=== PATIENT | female | born 1955 | race Caucasian/White ===

== ENCOUNTER → 2016-08-14 10:16 | Outpatient (CLI) | payer OTHER | END | disposition home or self-care (01) | LOC: D.MRI 10:16 | DX: M75.42 Impingement syndrome of left shoulder (principal) ==

== ENCOUNTER 2016-09-20 05:55 | Day surgery (SDC) | payer OTHER ==
[2016-09-19 11:57] LABS: HEMATOCRIT 43.7 % (36.0-48.0); MCH 30.7 pg (26.0-34.0); MCHC 34.3 g/dL (31.0-37.0); MCV 89.5 fL (80.0-100.0); MEAN PLATELET VOLUME 10.7 fL (7.4-10.4); RBC 4.88 10x6/uL (4.00-5.40); RDW 12.9 % (11.5-14.5); WBC 5.6 10x3/uL (4.8-10.8)
[~2016-09-20] VITALS: Ht 160 cm; Wt 81.6 kg
[2016-09-20] MEDS ORDERED: LEVOTHYROXINE125 MCG PO (08:31)
[2016-09-20 08:32] VITALS: BP 149/81; Ht 160 cm; Wt 81.6 kg
[2016-09-20] MEDS ORDERED: HYDROCODONE-APA1 TAB PO (12:29)
--- NOTE | 2016-09-20 19:37 | NUR ---
1345 IV DC WITH CATHER TIP INTACT
--- NOTE | 2016-09-24 09:22 | OP ---
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 PROCEDURES: 1. Arthroscopic biceps tenotomy. 2. Arthroscopic distal clavicle excision. 3. Arthroscopic subacromial decompression, acromioplasty and bursectomy. SURGEON: Cammy Muir MD ANESTHESIA: General. INTRAOPERATIVE COMPLICATIONS: None. SUMMARY OF PATHOLOGIC FINDINGS: The patient had approximately 50% of the superior aspect of the rotator cuff with attritional tearing; however, no point was full thickness and the articular aspect was in good overall condition. No rotator cuff repair was needed. The patient did, however, have substantial amounts of subacromial bursitis and a profound type 3 acromion with thickening of the coracoacromial ligament, as well as acromioclavicular arthritis and lastly, the patient had very severe case of biceps tendinitis. OPERATIVE SUMMARY IN DETAIL: After obtaining the appropriate preoperative orthopedic surgery consent as well as anesthetic consultation, evaluation and clearance, the patient was brought to the operating room and placed on the operating table in supine position. After general laryngeal mask was administered, tourniquet was placed in right lateral decubitus position. All pressure points were well padded to include down leg peroneal pad, as well as axillary roll. The patient was held firmly to the operating table using the vacuum pack suction system. Left upper extremity and shoulder were then prepped and draped in routine sterile fashion. The arm was held in the Arthrex traction boom at 30 degrees of forward flexion, 30 degrees of abduction with 10 pounds of traction laterally. Arthroscopy was established in the glenohumeral joint from posterior portal. Anterior portal was established in the anterior safe interval. Diagnostic arthroscopy showed the above-mentioned findings. The [place] tissue ablation system was utilized to perform a biceps tenotomy. Intraoperative photos were taken of this severe biceps tendinitis prior. Having completed this, attention was turned to the subacromial space. While on subacromial space, the patient was found to have an excoriation of the undersurface of the acromion, as well as the AC ligament. [place] tissue ablation system was utilized in conjunction with resector to completely denude the undersurface of the acromion and release the coracoacromial ligament. A 5-0 barrel rosio was then utilized to perform acromioplasty at the level of acromioclavicular joint and through a separate anterior arthroscopic portal, 1 cm of distal clavicle was excised, as well as inferior osteophytes at the AC joint. At this point, a large resector was utilized to debride the substantial amounts of bursa. The rotator cuff was then evaluated and found to have a OPERATIVE REPORT [id number] LYDIA DIAZ superficial attritional type of tearing; however, no full thickness tear was seen at any point. At this point, arthroscopy portals were closed in routine interrupted fashion. Sterile dressings were applied. The patient was awakened, LMA was removed. She was taken to recovery room in stable condition. All final needle and sponge counts were correct. TRANSINT:[id number] Voice Confirmation ID: [id number] DOCUMENT ID: [id number] WOOD SPRAGUE, CAMMY MALLORY at 0922 CC: [id number] DICTATION DATE: 09/20/16 1233 VINYL TOP INSTALLER: 09/21/16 0007 [facility] 09/20/16 [id number] [place] [address]
== END 2016-09-20 14:00 | disposition home or self-care (01) ==
LOC: D.OPS 05:55 → D.PAN 12:00 → D.OPS 14:00
PROVIDERS: Anesthesiology
DX: M75.42 Impingement syndrome of left shoulder (principal); M13.812 Other specified arthritis, left shoulder; M75.112 Incomplete rotator cuff tear or rupture of left shoulder, not specified as traumatic; M75.22 Bicipital tendinitis, left shoulder